=== PATIENT | male | born 1955 | race Caucasian/White ===

== ENCOUNTER 2017-02-18 23:36 | Emergency (ER) | payer BC, SELFPAY ==
[2017-02-18 23:54] VITALS: BP 153/89; PULSE 70; RESP 16; TEMP 36.6; O2SAT 98; BMI 26.6
--- NOTE | 2017-02-19 00:09 | XR_ITS ---
XR chest 2V HISTORY: ITS.REASON: cough ORDERING PHYSICIAN: Gabriel Burrell MD PATIENT AGE: 61 years COMPARISON: None available FINDINGS: The cardiomediastinal silhouette and pulmonary vascularity are within normal limits. The lungs are clear without infiltrates, suspicious nodules, or pleural effusions. No acute bony abnormalities. IMPRESSION: Negative chest, no acute finding
--- NOTE | 2017-02-19 00:14 | HMH.EDURI ---
ED Disposition Clinical Impression: Flu Disposition: Home, Self-Care Condition on Discharge: Good Instructions: DI for Fever (Symptom) -- Adult Additional Instructions: fluids and see pcp for follow up Referrals: Juan Jose De Luna [Primary Care Provider] - - Critical Care Critical Care Time: No Attestation: On , the high probability of a clinically significant, sudden or life threatening deterioration of the following system(s) required my full and direct attention, intervention and personal management. The time I documented below is in addition to time spent performing reported procedures but includes the following listed in this critical care notation. Medical Decision Making - Medical Records Medical records reviewed: Yes: I reviewed the patient's medical records. Vital Signs: 02/18/17 23:54 Temperature 97.8 F Temperature Source Oral Pulse Rate [Left Radial] 70 Respiratory Rate 16 Blood Pressure [Right Arm] 153/89 Blood Pressure Mean [Right Arm] 110 Blood Pressure Source [Right Arm] Automatic Cuff Blood Pressure Position [Right Arm] Sitting 02 Sat by Pulse Oximetry 98 Oxygen Delivery Method Room Air - Lab Data Lab results reviewed: Yes: I reviewed the patient's lab results. Lab Results 02/19/17 00:13: Influenza Type A Ag Negative, Influenza Type B Ag Negative 02/19/17 00:30: WBC 6.1, RBC 4.90, Hgb 14.3, Hct 43.1, MCV 87.9, MCH 29.3, MCHC 33.3, RDW 12.7, Plt Count 176, MPV 8.3, Neut % (Auto) 38.0, Lymph % (Auto) 49.7, Hood % (Auto) 5.3, Eos % (Auto) 2.9, Baso % (Auto) 0.7, Neut # (Auto) 2.3, Lymph # (Auto) 3.0, Hood # (Auto) 0.3, Eos # (Auto) 0.2, Baso # (Auto) 0.0 02/19/17 00:30: Sodium 142, Potassium 4.2, Chloride 107, Carbon Dioxide 29, Anion Gap 10.2, BUN 19 H, Creatinine 0.94, Estimated Creat Clear 88, Estimated GFR > 60, Est GFR ( Amer) > 60, Glucose 114 H, Calcium 8.6, Total Bilirubin 0.3, AST 70 H, ALT 90 H, Alkaline Phosphatase 64, Troponin I < 0.02, Total Protein 7.4, Albumin 3.9, Globulin 3.5 H, Albumin/Globulin Ratio 1.1 Result diagrams: 02/19/17 00:30 02/19/17 00:30 Orders (Tests/Meds): ED MEDICATIONS Discontinued Medications Generic Name Dose Route Start Last Admin Trade Name Javier PRN Reason Stop Dose Admin Sodium Chloride 1,000 mls @ 999 mls/hr 02/19/17 00:30 02/19/17 00:34 Sod Chloride 0.9% 1000ml Bag IV 02/19/17 01:30 999 mls/hr .Q1H1M HELGA Administration ORDERS Category Date Time Status Chest XR 2 view (NOT portable) [XR chest 2V] Stat Exams 02/19/17 00:09 Taken - Radiology Data #1 Image Reviewed: Yes I reviewed the patient's radiology image Preliminary Findings: Normal/NAD - [place] Inquiry Pt receiving controlled substance: No URI/Sore Throat HPI - General Chief Complaint: Fever Stated Complaint: fever,feels bad all over Time Seen by Provider: 02/19/17 00:14 Mode of Arrival: Ambulatory Source of Information: Patient, Relative, Medical Record Limitations: No Limitations Description of Symptoms (Recalled from ER Triage Doc. by RN): clamy sweaty stomach upset, dx of flu and on tamiflu - History of Present Illness HPI Narrative: this wm with exposure to flu and finished med tonight - pt with no chest pain MD Complaint: cough Onset (ago): day(s) Duration: intermittent Severity: moderate Description of mucous: clear Able to tolerate fluids by mouth: Yes Context: sick contacts - Related Data Home Medications Medication Instructions Recorded Confirmed Unobtainable [Unobtainable] 02/19/17 02/19/17 Allergies Allergy/AdvReac Type Severity Reaction Status Date / Time No Known Drug Allergies Allergy Unknown Verified 02/19/17 00:06 [NKDA] [facility] History I have reviewed the patient's past medical history: Yes Medical History: Denies:: Cancer, Diabetes Mellitus Type 1, Diabetes Mellitus Type 2, MRSA Amputation: No Fractures: No - *Social History Educational Level: Attended High School [employer]
--- NOTE | 2017-02-19 00:26 | ED_ITS ---
ED Disposition Clinical Impression: Flu Disposition: Home, Self-Care Condition on Discharge: Good Instructions: DI for Fever (Symptom) -- Adult Additional Instructions: fluids and see pcp for follow up Referrals: Juan Jose De Luna [Primary Care Provider] - - Critical Care Critical Care Time: No Attestation: On , the high probability of a clinically significant, sudden or life threatening deterioration of the following system(s) required my full and direct attention, intervention and personal management. The time I documented below is in addition to time spent performing reported procedures but includes the following listed in this critical care notation. Medical Decision Making - Medical Records Medical records reviewed: Yes: I reviewed the patient's medical records. Vital Signs: 02/18/17 23:54 Temperature 97.8 F Temperature Source Oral Pulse Rate [Left Radial] 70 Respiratory Rate 16 Blood Pressure [Right Arm] 153/89 Blood Pressure Mean [Right Arm] 110 Blood Pressure Source [Right Arm] Automatic Cuff Blood Pressure Position [Right Arm] Sitting 02 Sat by Pulse Oximetry 98 Oxygen Delivery Method Room Air - Lab Data Lab results reviewed: Yes: I reviewed the patient's lab results. Lab Results 02/19/17 00:13: Influenza Type A Ag Negative, Influenza Type B Ag Negative 02/19/17 00:30: WBC 6.1, RBC 4.90, Hgb 14.3, Hct 43.1, MCV 87.9, MCH 29.3, MCHC 33.3, RDW 12.7, Plt Count 176, MPV 8.3, Neut % (Auto) 38.0, Lymph % (Auto) 49.7 , Orange % (Auto) 5.3, Eos % (Auto) 2.9, Baso % (Auto) 0.7, Neut # (Auto) 2.3, Lymph # (Auto) 3.0, Orange # (Auto) 0.3, Eos # (Auto) 0.2, Baso # (Auto) 0.0 02/19/17 00:30: Sodium 142, Potassium 4.2, Chloride 107, Carbon Dioxide 29, Anion Gap 10.2, BUN 19 H, Creatinine 0.94, Estimated Creat Clear 88, Estimated GFR > 60, Est GFR ( Amer) > 60, Glucose 114 H, Calcium 8.6, Total Bilirubin 0.3, AST 70 H, ALT 90 H, Alkaline Phosphatase 64, Troponin I < 0.02, Total Protein 7.4, Albumin 3.9, Globulin 3.5 H, Albumin/Globulin Ratio 1.1 Result diagrams: 02/19/17 00:30 02/19/17 00:30 Orders (Tests/Meds): ED MEDICATIONS Discontinued Medications Generic Name Dose Route Start Last Admin Trade Name Freq PRN Reason Stop Dose Admin Sodium Chloride 1,000 mls @ 999 mls/hr 02/19/17 00:30 02/19/17 00:34 Sod Chloride 0.9% 1000ml Bag IV 02/19/17 01:30 999 mls/hr .Q1H1M HELGA Administration ORDERS Category Date Time Status Chest XR 2 view (NOT portable) [XR chest 2V] Stat Exams 02/19/17 00:09 Taken - Radiology Data #1 Image Reviewed: Yes I reviewed the patient's radiology image Preliminary Findings: Normal/NAD - [place] Inquiry Pt receiving controlled substance: No URI/Sore Throat HPI - General Chief Complaint: Fever Stated Complaint: fever,feels bad all over Time Seen by Provider: 02/19/17 00:14 Mode of Arrival: Ambulatory Source of Information: Patient, Relative, Medical Record Limitations: No Limitations Description of Symptoms (Recalled from ER Triage Doc. by RN): clamy sweaty stomach upset, dx of flu and on tamiflu - History of Present Illness HPI Narrative: this wm with exposure to flu and finished med tonight - pt with no chest pain MD Complaint: cough Onset (ago): day(s) Duration: intermittent Severity: moderate Description of mucous: li
[2017-02-19 01:48] LABS: Basophils % 0.7 % (0.1-2.0); Eosinophils % 2.9 % (0.1-12.0); Hematocrit 43.1 % (42.0-52.0); Hemoglobin 14.3 g/dL (14.1-18.0); Lymphocytes % 49.7 K/mm3 (10-50); Mean Corpuscular HGB Conc 33.3 g/dL (31.8-35.4); Mean Corpuscular Hemoglobin 29.3 pg (27.0-31.2); Mean Corpuscular Volume 87.9 fl (80-94); Mean Platelet Volume 8.3 fl (7.4-10.4); Monocytes % 5.3 % (1.7-9.3); Platelet Count 176 K/mm3 (142-424); Red Cell Distribution Width 12.7 % (11.5-17.5); White Blood Count 6.1 K/mm3 (4.8-10.8)
[2017-02-19 01:49] LABS: Eosinophils # 0.2 K/mm3 (0.0-0.4); Monocytes # 0.3 K/mm3 (0.1-1.0); Neutrophils # 2.3 K/mm3 (1.8-7.8)
[2017-02-19 01:52] LABS: Alanine Aminotransferase 90 U/L (12-78); Albumin Level 3.9 gm/dL (3.4-5.0); Albumin/Globulin Ratio 1.1 (1.1-1.8); Alkaline Phosphatase 64 U/L (46-116); Anion Gap 10.2 mEq/L (5-15); Aspartate Amino Transferase 70 U/L (15-37); Bilirubin,Total 0.3 mg/dL (0.2-1.0); Blood Urea Nitrogen 19 mg/dL (7-18); Calcium 8.6 mg/dL (8.5-10.1); Carbon Dioxide 29 mmol/L (21.0-32.0); Chloride 107 mmol/L (98-107); Creatinine Clearance Estimated 88 mL/min (0-300); Creatinine,Serum 0.94 mg/dL (0.70-1.30); Estimated Glomerular Filt Rate > 60 ml/min (>60); GFR (African American) > 60 ML/MIN (>60); Globulin 3.5 gm/dl (1.3-3.2); Glucose 114 mg/dL (74-106); Potassium 4.2 mmoL/L (3.5-5.1); Sodium 142 mmol/L (136-145); Total Protein,Serum 7.4 gm/dL (6.4-8.2); Troponin I < 0.02 ng/ml (0.00-0.06)
[2017-02-19 02:24] VITALS: BP 142/82; PULSE 64; RESP 20; TEMP 36.4; O2SAT 97
== END 2017-02-19 02:26 | disposition home or self-care (01) ==
PROVIDERS: Emergency Provider Emergency Medicine; Family Provider Internal Medicine; PCP Internal Medicine
DX: J11.1 Influenza due to unidentified influenza virus with other respiratory manifestations (principal)
CPT/HCPCS: 71046; 80053; 84484; 85025; 87275; 87276; 96360; 96365; 99284

== ENCOUNTER → 2017-08-02 08:26 | Outpatient (CLI) | payer BC, SELFPAY ==
--- NOTE | 2017-08-02 08:30 | CT_ITS ---
CT abdomen pelvis wo con Ordering Physician: Juan Jose De Luna Patient Age: 62 years: Male HISTORY: ITS.REASON: RLQ PAIN . Right lower quadrant intermittent several months* TECHNIQUE: Helical CT scanning through abdomen following oral contrast only. No IV contrast utilized. COMPARISON :None FINDINGS Lung bases. Clear no active disease heart normal size. Abdomen/pelvis. Lack of IV contrast is slightly decreased sensitivity. Gallbladder. Upper normal wall thickness on this noncontrast study. No gallstones. Noncontrast images pancreas, spleen, adrenals unremarkable. Kidneys with no urinary tract calculi nor obstruction. Unremarkable. Liver. Tiny vague barely evident 5 mm low-density area anterior liver near junction right & left lobe liver. Axial image 20 sagittal 26.. Will benefit from follow-up in postcontrast CT 3 days 4 months.. Consider ultrasound No retroperitoneal nor mesenteric adenopathy of significance GI tract.. Low-density focal wall thickening along posterior medial aspect of of cecum, (axial image 79, 80, sagittal slice 31).. Possibly edematous area wall thickening given this low density character. The wall measures nearly 1 cm thickness x 2.2 cm length. Uncertain nature. This extends upward to just beneath ileocecal valve. Question some upper normal slight wall thickening at the terminal ileum.. Suggestion slight hazy appearance in the fat just posterior to cecum on axial image 8, sagittal slice 27 as well. The appendix arises just below, inferior to this area of wall thickening. Appendix normal. No appendicitis Lax-appearing inguinal ring bilaterally with increased fat along inguinal canal. Could reflect early inguinal hernias versus merely generous fat along the canal. No bowel loops associated. . Small fat-containing umbilical hernia Pelvis generous size prostate 5.3 cm transverse. Osseous. No osseous lesions. IMPRESSION-------- 1.. Focal wall thickening along posterior medial aspect of cecum, (between ileocecal valve & appendix).. Subtle slight hazy appearance in adjacent fat overlying this area.. Question borderline/minimal wall thickening, terminal ileum. Although could be related focal colitis, & inflammatory process,... I would recommend colonoscopy to better exclude central developing lesion/neoplasm.. 2. The appendix itself appears normal otherwise. 3. No significant adenopathy 4.. Nonspecific Tiny vague barely evident 5 mm low-density area at anterior Liver near junction right & left lobe liver.. Will benefit from follow-up
== END ==
PROVIDERS: Family Provider Internal Medicine; PCP Internal Medicine; Visit Provider Internal Medicine
DX: R10.31 Right lower quadrant pain (principal)
CPT/HCPCS: 74176

== ENCOUNTER → 2017-08-13 11:54 | Outpatient (CLI) | payer BC, SELFPAY ==
[2017-08-13 13:37] LABS: Anion Gap 10.1 mEq/L (5-15); Blood Urea Nitrogen 16 mg/dL (7-18); Calcium 9.3 mg/dL (8.5-10.1); Carbon Dioxide 28 mmol/L (21.0-32.0); Chloride 107 mmol/L (98-107); Creatinine,Serum 0.91 mg/dL (0.70-1.30); Estimated Glomerular Filt Rate 84 ml/min (>60); GFR (African American) 102 ML/MIN (>60); Glucose 110 mg/dL (74-106); Potassium 5.1 mmoL/L (3.5-5.1); Sodium 140 mmol/L (136-145)
== END ==
PROVIDERS: Visit Provider Nurse Practitioner Acute Care
DX: K76.89 Other specified diseases of liver (principal)
CPT/HCPCS: 36415; 80048

== ENCOUNTER → 2017-08-21 08:09 | Outpatient (CLI) | payer BC, SELFPAY | PROVIDERS: Family Provider Internal Medicine; PCP Internal Medicine; Visit Provider Nurse Practitioner Acute Care | DX: R16.0 Hepatomegaly, not elsewhere classified (principal) ==

== ENCOUNTER → 2017-08-27 08:19 | Outpatient (CLI) | payer BC, SELFPAY ==
--- NOTE | 2017-08-27 08:23 | MR_ITS ---
MR abdomen wo/w con Ordering Physician: Marcia Chakraborty Patient Age: 62 years: Male HISTORY: ITS.REASON: LIVER MASS TECHNIQUE: MRI of the abdomen (pelvis not included). COMPARISON : Multiplanar multisequence imaging pre and postcontrast. Postcontrast images following ProHance 16 mL. Sequential postcontrast images abdomen/liver were obtained with arterial, venous phase and delayed images postcontrast in reviewed with the with precontrast imaging. FINDINGS COMPARISON is made to recent CT abdomen pelvis. 08/02/2018 The liver shows no significant focal lesion. No enhancing abnormality evident postcontrast . The liver appears normal with only a tiny barely evident 4 mm x 5 mm cyst superior segment 4a liver.. This is seen on CT but today's MR further support small cyst.. No enhancement at tiny fluid signal focus. No associated findings. . Spleen appears normal. Kidneys. No significant appearing findings. It appears that inhomogeneous artifact on this Siemens short bore scanner account for the decreased signal at the lower pole left kidney on some of the sequences. But not a significant finding. Artifact.. Adrenals unremarkable. There is a small less than 1 cm cyst at along the anterior margin of the mid left kidney on one of the images, axial slice 20. This is faintly seen on prior CT as well. Gallbladder remains. No biliary ductal dilatation. Images the pancreas show no abnormality No retroperitoneal adenopathy. . These images do not include the cecum but the coronal images do extend down to just above the cecum. These limited images of right colon are unremarkable as well. IMPRESSION: ======= . No significant finding No significant masses or lesions evident at the liver. Small 4 x 5 mm cyst at the anterior upper liver. Segment 4A A tiny less than 1 cm cysts anterior aspect mid left kidney.
--- NOTE | 2017-08-27 09:52 | HMH.ITSHM ---
LISINOPRIL ATORVASTATIN
== END ==
PROVIDERS: Family Provider Internal Medicine; PCP Internal Medicine; Visit Provider Nurse Practitioner Acute Care
DX: K76.89 Other specified diseases of liver (principal)
CPT/HCPCS: 74183; A9576

== ENCOUNTER → 2017-10-30 11:17 | Outpatient (CLI) | payer BC, SELFPAY ==
[2017-10-30 11:37] LABS: Basophils % 0.4 % (0.1-2.0); Eosinophils # 0.2 K/mm3 (0.0-0.4); Eosinophils % 3.4 % (0.1-12.0); Hematocrit 45.8 % (42.0-52.0); Hemoglobin 15.2 g/dL (14.1-18.0); Lymphocytes # 1.5 K/mm3 (0.7-4.5); Lymphocytes % 25.8 K/mm3 (10-50); Mean Corpuscular HGB Conc 33.2 g/dL (31.8-35.4); Mean Corpuscular Hemoglobin 29.4 pg (27.0-31.2); Mean Corpuscular Volume 88.4 fl (80-94); Mean Platelet Volume 7.1 fl (7.4-10.4); Monocytes # 0.3 K/mm3 (0.1-1.0); Monocytes % 4.6 % (1.7-9.3); Neutrophils # 3.8 K/mm3 (1.8-7.8); Neutrophils % 65.7 % (37.0-80.0); Platelet Count 187 K/mm3 (142-424); Red Blood Count 5.18 M/mm3 (4.60-6.20); Red Cell Distribution Width 13.3 % (11.5-17.5); White Blood Count 5.8 K/mm3 (4.8-10.8)
[2017-10-30 16:07] LABS: Blood Urea Nitrogen 15 mg/dL (7-18); Calcium 9.1 mg/dL (8.5-10.1); Carbon Dioxide 22 mmol/L (21.0-32.0); Chloride 109 mmol/L (98-107); Creatinine,Serum 0.75 mg/dL (0.70-1.30); Estimated Glomerular Filt Rate 105 ml/min (>60); GFR (African American) 127 ML/MIN (>60); Glucose 92 mg/dL (74-106); Sodium 145 mmol/L (136-145)
== END ==
PROVIDERS: Family Provider Internal Medicine; PCP Internal Medicine; Visit Provider Surgery
DX: K46.9 Unspecified abdominal hernia without obstruction or gangrene (principal)
CPT/HCPCS: 36415; 80048; 85025; 93005

== ENCOUNTER → 2020-03-05 14:28 | Outpatient (CLI) | payer MEDICARE, BC, SELFPAY ==
[2020-03-06 10:52] LABS: Covid-19 Nasal PCR Sendout P&C NEGATIVE
== END ==
PROVIDERS: PCP Internal Medicine; Visit Provider Internal Medicine
DX: Z20.822 Contact with and (suspected) exposure to COVID-19 (principal)
CPT/HCPCS: U0004

== ENCOUNTER → 2021-01-20 20:09 | Outpatient (CLI) | payer MEDICARE, SELFPAY | PROVIDERS: PCP Internal Medicine; Visit Provider Nurse Practitioner Family | DX: Z20.822 Contact with and (suspected) exposure to COVID-19 (principal) | CPT/HCPCS: C9803; U0003; U0005 ==

== ENCOUNTER → 2021-11-25 11:17 | Outpatient (CLI) | payer MEDICARE, SELFPAY ==
--- NOTE | 2021-11-25 11:24 | XR_ITS ---
FINAL REPORT TECHNIQUE: Chest PA & Lateral CLINICAL HISTORY: RT FLANK PAIN COMPARISON: February 2017 FINDINGS: 2 views of the chest were performed. The heart size is normal. The mediastinum is within normal limits. There is no acute cardiopulmonary process. There are no pleural effusions. There is no pneumothorax. There is moderate degenerative change of the thoracic spine. IMPRESSION: No acute cardiopulmonary process. Reviewed, Interpreted and Dictated by Lonnie Pederson III, MD Transcribed by Miki Ramos Authenticated and . [facility]
--- NOTE | 2021-11-25 11:24 | XR_ITS ---
FINAL REPORT CLINICAL HISTORY: FLANK PAIN FINDINGS: A single view of the abdomen was obtained. There is a nonobstructive bowel gas pattern. There are no abnormally dilated loops of small bowel. There is a moderate amount of retained stool. IMPRESSION: 1. Nonobstructive bowel gas pattern. 2. Moderate amount of retained stool. Reviewed, Interpreted and Dictated by Lonnie Pederson III, MD Transcribed by Miki Ramos Authenticated and . [facility]
== END ==
PROVIDERS: PCP Internal Medicine; Visit Provider Family Medicine
DX: R07.89 Other chest pain (principal); R10.9 Unspecified abdominal pain
CPT/HCPCS: 71046; 74018

== ENCOUNTER → 2021-12-09 13:31 | Outpatient (CLI) | payer MEDICARE, SELFPAY ==
[2021-12-09 15:20] LABS: Basophils # 0.1 K/mm3 (0-0.2); Eosinophils # 0.3 K/mm3 (0.0-0.4); Hematocrit 49.9 % (42.0-52.0); Hemoglobin 16.4 g/dL (14.1-18.0); Lymphocytes # 2.4 K/mm3 (0.7-4.5); Lymphocytes % 35.3 % (10-50); Mean Corpuscular HGB Conc 32.9 g/dL (31.8-35.4); Mean Corpuscular Hemoglobin 30.1 pg (27.0-31.2); Mean Corpuscular Volume 91.6 fl (80-94); Mean Platelet Volume 8.6 fl (7.4-10.4); Monocytes # 0.3 K/mm3 (0.1-1.0); Monocytes % 4.6 % (1.7-9.3); Neutrophils # 3.7 K/mm3 (1.8-7.8); Neutrophils % 55.1 % (37.0-80.0); Platelet Count 250 K/mm3 (142-424); Red Blood Count 5.44 M/mm3 (4.60-6.20); Red Cell Distribution Width 13.4 % (11.5-17.5); White Blood Count 6.8 K/mm3 (4.8-10.8)
[2021-12-09 15:50] LABS: Alanine Aminotransferase 21 U/L (12-78); Albumin Level 4.5 g/dl (3.5-5.0); Albumin/Globulin Ratio 1.8 (1.1-1.8); Alkaline Phosphatase 98 U/L (38-126); Anion Gap 18.2 mEq/L (5-15); Aspartate Amino Transferase 34 U/L (17-59); Bilirubin,Total 0.8 mg/dl (0.2-1.3); Blood Urea Nitrogen 13 mg/dl (9-20); Calcium 9.6 mg/dl (8.4-10.2); Carbon Dioxide 28 mmol/L (22.0-30.0); Chloride 102 mmol/L (98-107); Cholesterol 143 mg/dl (140-200); Estimated Glomerular Filt Rate 96 ml/min (>60); GFR (African American) 117 ML/MIN (>60); Globulin 2.5 g/dL (1.3-3.2); Glucose 90 mg/dl (74-100); HDL Cholesterol 47 mg/dl (40-60); Potassium 5.2 mmoL/L (3.5-5.1); Sodium 143 mmol/L (136-145); Triglycerides 65 mg/dl (30-150); VLDL Cholesterol 13 mg/dL (0-40)
[2021-12-09 16:01] LABS: Direct LDL Cholesterol 76.02 mg/dL (100-129)
[2021-12-09 16:21] LABS: Prostate Specific Ag Screen 1.2 ng/ml (0.0-4.0)
== END ==
PROVIDERS: PCP Internal Medicine; Visit Provider Internal Medicine
DX: I10 Essential (primary) hypertension (principal); E78.5 Hyperlipidemia, unspecified; N40.1 Benign prostatic hyperplasia with lower urinary tract symptoms; Z12.5 Encounter for screening for malignant neoplasm of prostate
CPT/HCPCS: 80053; 80061; 85025; G0103

== ENCOUNTER 2022-02-23 19:50 | Emergency (ER) | payer MEDICARE, SELFPAY ==
[2022-02-23 20:17] VITALS: BP 161/88; PULSE 72; RESP 17; TEMP 36.8; O2SAT 98; BMI 26.1
--- NOTE | 2022-02-23 20:44 | HMH.EDDENT ---
Discharge Plan Disposition Patient Disposition: Home, Self-Care Prescriptions Prescriptions: New cephalexin [cephalexin] 500 mg capsule 500 mg PO TID Qty: 30 0RF No Action atorvastatin 20 MG tablet 20 mg PO DAILY lisinopril 20 tablet 20 mg PO DAILY Referrals Follow up/Referrals: Juan Jose De Luna MD [Primary Care Provider] - See instructions Clinical Impressions Clinical Impression: Gingival and periodontal disease Instructions Patient Instructions: DI for Gingivitis Discharge ED Provider: Gabriel Burrell Dental HPI General Chief complaint: Dental/Oral Stated complaint: dental pain Time Seen by Provider: 02/23/22 20:44 Mode of Arrival: Family Vehicle Source of Information: Patient and Medical Record Limitations: No Limitations Description of Symptoms (Recalled from ER Triage Doc. by RN): 66 yo male presents with pain associated with what he assumes is a bad tooth . States he was 'working on his mower and noticed the pain in the front bottom of his mouth -below his teeth-was hurting. Attempted to use orajel without any success. Denies allergies to meds. No previous dental surgeries. Has seen Dr Oliver in the past. History of Present Illness HPI Narrative: swollen mid lower lip - inner aspect- no diff swallowing and no tongue swelling and has thrombing to gum line - has been on lisinopril for some time Onset (ago): hour(s) Duration: intermittent Severity: mild Associated symptoms: gum swelling Treatment prior to arrival: topical analgesic Related Data Home Medications Medication Instructions Recorded Confirmed atorvastatin 20 mg tablet 20 mg PO DAILY Cholesterol 10/01/17 11/07/17 lisinopril 20 mg tablet 20 mg PO DAILY bp 10/01/17 11/07/17 Previous Rx's Medication Instructions Recorded cephalexin 500 mg capsule 500 mg PO TID #30 caps 02/23/22 Allergies Allergy/AdvReac Type Severity Reaction Status Date / Time No Known Drug Allergies Allergy Unknown Verified 11/30/17 09:37 [NKDA] [facility] Disclaimer: The information contained in this section may have been updated after the patient was seen, as this information can be updated by other users. Social History Smoking Status: Never smoker second hand exposure: No alcohol intake: never current occupational status: employed Travel in the last 8 weeks: None household members: family housing: house current occupational exposures/hazards: No caffeine: No ROS Obtained: Yes All systems reviewed & no additional complaints except as documented Physical Exam General General appearance: alert Head Head exam: normocephalic Eye Eye exam: Present PERRL and EOMI ENT ENT exam: Present mucous membranes moist and other (tongue ok - sl tender to ant gum line no def abscess /mild induration to gum line ) Neck Neck exam: Present trachea midline Respiratory Respiratory exam: Absent respiratory distress Cardiovascular Cardiovascular exam: Present regular rate Abdominal Exam Abdominal exam: Present soft Extremities Exam Extremities exam: Present full ROM Neurological Exam Neurological exam: Present alert, oriented X3 and CN II-XII intact; Absent motor sensory deficit Psychiatric Psychiatric exam: Present normal affect Skin Skin exam: Absent rash Medical Decision Making Medical Records Medical records reviewed: Yes I reviewed the patient's medical records. [place] Inquiry Pt receiving controlled substance: No Vital Signs: 02/23/22 20:17 Temperature 98.2 F Temperature Source Oral Pulse Rate [Right Brachial] 72 Respiratory Rate 17 Blood Pressure [Right Arm] 161/88 H Blood Pressure Mean [Right Arm] 112 Blood Pressure Source [Right Arm] Automatic Cuff Blood Pressure Position [Right Arm] Sitting 02 Sat by Pulse Oximetry 98 Oxygen Delivery Method Room Air Lab Data Lab results reviewed: Yes I reviewed the patient's lab results. Medical Decision Narrative: pt with prog gingival dis but will as
[2022-02-23 21:22] VITALS: BP 157/71; PULSE 70; RESP 16; TEMP 36.8; O2SAT 98
== END 2022-02-23 21:23 | disposition home or self-care (01) ==
PROVIDERS: Emergency Provider Emergency Medicine; PCP Internal Medicine
DX: K05.01 Acute gingivitis, non-plaque induced (principal); K05.20 Aggressive periodontitis, unspecified
CPT/HCPCS: 99283; 99284

== ENCOUNTER → 2022-06-12 10:11 | Outpatient (CLI) | payer MEDICARE, SELFPAY ==
[2022-06-12 11:13] LABS: Chloride 106 mmol/L (98-107)
[2022-06-12 11:14] LABS: Potassium 4.4 mmoL/L (3.5-5.1); Sodium 140 mmol/L (136-145)
[2022-06-12 11:16] LABS: Alanine Aminotransferase 25 U/L (12-78); Anion Gap 9.4 mEq/L (5-15); Aspartate Amino Transferase 30 U/L (17-59); Blood Urea Nitrogen 14 mg/dl (9-20); Carbon Dioxide 29 mmol/L (22.0-30.0); Estimated Glomerular Filt Rate 84 ml/min (>60); GFR (African American) 102 ML/MIN (>60)
[2022-06-12 11:17] LABS: Albumin Level 4.2 g/dl (3.5-5.0); Albumin/Globulin Ratio 1.8 (1.1-1.8); Alkaline Phosphatase 67 U/L (38-126); Bilirubin,Total 0.7 mg/dl (0.2-1.3); Chol/HDL Ratio 3.2 (1-3.5); Cholesterol 129 mg/dl (140-200); Globulin 2.4 g/dL (1.3-3.2); Glucose 102 mg/dl (74-100); HDL Cholesterol 40 mg/dl (40-60); Total Protein,Serum 6.6 g/dl (6.3-8.2); Triglycerides 106 mg/dl (30-150); VLDL Cholesterol 21 mg/dL (0-40)
[2022-06-12 11:28] LABS: Direct LDL Cholesterol 73.07 mg/dL (100-129)
== END ==
PROVIDERS: PCP Internal Medicine; Visit Provider Internal Medicine
DX: I10 Essential (primary) hypertension (principal); E78.5 Hyperlipidemia, unspecified
CPT/HCPCS: 36415; 80053; 80061

== ENCOUNTER → 2022-12-13 09:22 | Outpatient (CLI) | payer MEDICARE, SELFPAY ==
[2022-12-13 10:04] LABS: Basophils # 0.1 K/mm3 (0-0.2); Basophils % 0.8 % (0.1-2.0); Eosinophils # 0.3 K/mm3 (0.0-0.4); Eosinophils % 4.9 % (0.1-12.0); Hematocrit 46.4 % (42.0-52.0); Hemoglobin 15.8 g/dL (14.1-18.0); Lymphocytes # 2.5 K/mm3 (0.7-4.5); Lymphocytes % 39.6 % (10-50); Mean Corpuscular HGB Conc 34.1 g/dL (31.8-35.4); Mean Corpuscular Hemoglobin 31.6 pg (27.0-31.2); Mean Corpuscular Volume 92.7 fl (80-94); Monocytes # 0.3 K/mm3 (0.1-1.0); Monocytes % 4.8 % (1.7-9.3); Neutrophils # 3.1 K/mm3 (1.8-7.8); Neutrophils % 49.9 % (37.0-80.0); Platelet Count 185 K/mm3 (142-424); Red Cell Distribution Width 13.5 % (11.5-17.5); White Blood Count 6.2 K/mm3 (4.8-10.8)
[2022-12-13 11:06] LABS: Alanine Aminotransferase 25 U/L (12-78); Albumin Level 4.5 g/dl (3.5-5.0); Albumin/Globulin Ratio 1.9 (1.1-1.8); Alkaline Phosphatase 73 U/L (38-126); Anion Gap 13.8 mEq/L (5-15); Aspartate Amino Transferase 37 U/L (17-59); Bilirubin,Total 0.7 mg/dl (0.2-1.3); Blood Urea Nitrogen 21 mg/dl (9-20); Calcium 9.5 mg/dl (8.4-10.2); Carbon Dioxide 26 mmol/L (22.0-30.0); Chloride 105 mmol/L (98-107); Chol/HDL Ratio 2.9 (1-3.5); Cholesterol 141 mg/dl (140-200); Estimated Glomerular Filt Rate 84 ml/min (>60); GFR (African American) 102 ML/MIN (>60); Globulin 2.4 g/dL (1.3-3.2); Glucose 94 mg/dl (74-100); HDL Cholesterol 48 mg/dl (40-60); Potassium 4.8 mmoL/L (3.5-5.1); Sodium 140 mmol/L (136-145); Total Protein,Serum 6.9 g/dl (6.3-8.2); Triglycerides 45 mg/dl (30-150); VLDL Cholesterol 9 mg/dL (0-40)
[2022-12-13 11:35] LABS: Prostate Specific Ag Screen 1.1 ng/ml (0.0-4.0)
== END ==
PROVIDERS: PCP Internal Medicine; Visit Provider Internal Medicine
DX: I10 Essential (primary) hypertension (principal); Z12.5 Encounter for screening for malignant neoplasm of prostate; E78.5 Hyperlipidemia, unspecified; N40.1 Benign prostatic hyperplasia with lower urinary tract symptoms
CPT/HCPCS: 36415; 80053; 80061; 85025; G0103

== ENCOUNTER 2023-06-13 13:14 | Outpatient (CLI) | payer MEDICARE, SELFPAY ==
[2023-06-13 14:21] LABS: Alanine Aminotransferase 25 U/L (12-78); Albumin Level 4.3 g/dl (3.5-5.0); Albumin/Globulin Ratio 1.8 (1.1-1.8); Alkaline Phosphatase 72 U/L (38-126); Anion Gap 12.4 mEq/L (5-15); Aspartate Amino Transferase 34 U/L (17-59); Bilirubin,Total 0.9 mg/dl (0.2-1.3); Blood Urea Nitrogen 20 mg/dl (9-20); Calcium 9.4 mg/dl (8.4-10.2); Carbon Dioxide 27 mmol/L (22.0-30.0); Chloride 107 mmol/L (98-107); Chol/HDL Ratio 2.6 (1-3.5); Cholesterol 151 mg/dl (140-200); Estimated Glomerular Filt Rate 84 ml/min (>60); GFR (African American) 102 ML/MIN (>60); Globulin 2.4 g/dL (1.3-3.2); Glucose 80 mg/dl (74-100); HDL Cholesterol 57 mg/dl (40-60); Potassium 4.4 mmoL/L (3.5-5.1); Sodium 142 mmol/L (136-145); Total Protein,Serum 6.7 g/dl (6.3-8.2); Triglycerides 75 mg/dl (30-150); VLDL Cholesterol 15 mg/dL (0-40)
[2023-06-13 14:31] LABS: Direct LDL Cholesterol 82.38 mg/dL (100-129)
== END 2023-06-13 23:59 | disposition home or self-care (01) ==
LOC: LAB.DROPOF 13:15
PROVIDERS: PCP Internal Medicine; Visit Provider Internal Medicine
DX: I10 Essential (primary) hypertension (principal); E78.5 Hyperlipidemia, unspecified; N40.1 Benign prostatic hyperplasia with lower urinary tract symptoms
CPT/HCPCS: 80053; 80061

== ENCOUNTER 2023-07-11 09:31 | Outpatient (POV) | payer MEDICARE, SELFPAY | END 2023-07-11 23:59 | disposition home or self-care (01) | LOC: SC 09:31 | PROVIDERS: Visit Provider Specialist/Technologist | DX: Z00.00 Encounter for general adult medical examination without abnormal findings (principal) ==

== ENCOUNTER 2023-11-12 06:33 | Day surgery (SDC) | payer MEDICARE, SELFPAY ==
[2023-11-07 09:15] VITALS: BMI 25.1
[2023-11-12 07:05] VITALS: BP 142/88; PULSE 68; RESP 18; TEMP 36.2; O2SAT 100
[2023-11-12] MEDS: LACTATED RINGERS 1000ML 1,000 ML 25 ML IV (07:13)
--- NOTE | 2023-11-12 07:32 | EXP.ANES.CKL ---
[facility] Disclaimer: The information contained in this section may have been updated after the patient was seen, as this information can be updated by other users. Medical History Hyperlipidemia Hypertension Eustachian tube obstruction Bilateral serous otitis media Dizziness Tinnitus Hearing loss Surgical History History of colonoscopy with polypectomy History of hernia repair Family History Other Family history of CABG Family history of [place] (myocardial infarction) Social History Smoking Status: Never smoker second hand exposure: No alcohol intake: former substance use type: denies use current occupational status: retired Travel in the last 8 weeks: None household members: family housing: house current occupational exposures/hazards: No caffeine: No [facility] Anesthesia Checklist Patient Identification Patient Identification: Arm Band and Verbal (Name & ) Structural Data Admitted From: Home Planned Operative Procedure/s: Colonoscopy Consent for Planned Operative Procedure(s) Verified: Yes Verified Documents: Surgical Consent and History and Physical NPO Status Verified Time NPO: 00:00 Additional verifications Anesthesia Reactions: No Hx Blood Transfusions: No Blood Transfusion Reaction: No Airway Assessment Mallampati Score:: Class II C-Spine Mobility Assessed: Yes TMJ Mobility Assessed: Yes Dentition: Poor Dentition Neurological Assessment Level of Consciousness: Awake Hx Seizures: No Numbness or tingling in extremities: No Anesthesia Plan Anesthesia Risk discussed: Yes Anesthesia Plan: Verified ASA Class: II Anesthesia Type: MAC
--- NOTE | 2023-11-12 07:51 | P.HP_ITS ---
History of Present Illness *Admission Date: 11/12/23 *Reason for visit:: Screening *History of present illness: Mr. Cuevas is a 68-year-old gentleman who is here for screening due to a personal history of colon polyps. The examination is deemed medically necessary for screening. The patient has been seen, interviewed and examined prior to the procedure by both myself and the anesthesia provider. [facility] Disclaimer: The information contained in this section may have been updated after the patient was seen, as this information can be updated by other users. Medical History Hyperlipidemia Hypertension Eustachian tube obstruction Bilateral serous otitis media Dizziness Tinnitus Hearing loss Surgical History History of colonoscopy with polypectomy History of hernia repair Family History Other Family history of CABG Family history of [place] (myocardial infarction) Social History (Updated 11/12/23 @ 07:32 by Yajaira Charles CRNA) Smoking Status: Never smoker second hand exposure: No alcohol intake: former substance use type: denies use current occupational status: retired Travel in the last 8 weeks: None household members: family housing: house current occupational exposures/hazards: No caffeine: No Review of Systems Review of Systems Review of systems (narrative): Negative *Cardiovascular Comments: Negative *Gastrointestinal Comments: Negative *Genitourinary Comments: Negative *Musculoskeletal Comments: Negative *Neurologic Comments: Negative Meds Home Medications and Allergies Home Medications ?Medication ?Instructions ?Recorded ?Confirmed ?Type atorvastatin 20 mg tablet 20 mg PO DAILY Cholesterol 10/01/17 11/12/23 History lisinopril 20 mg tablet 20 mg PO DAILY bp #90 tabs 09/25/23 11/12/23 Rx sodium,potassium,mag sulfates 17.5 See Rx Instructions PO .COMPLEX 10/29/23 11/07/23 Rx gram-3.13 gram-1.6 gram oral soln #354 mL (Suprep Bowel Prep Kit) New Prescriptions to Start Prescriptions: Allergies Allergy/AdvReac Type Severity Reaction Status Date / Time No Known Drug Allergies Allergy Unknown Other Verified 11/12/23 07:04 [NKDA] Exam Data for Last 24 hours Vital signs and Labs for Last 24 Hours: Temp Pulse Resp BP Pulse Ox O2 Del Method 97.1 F L 68 18 142/88 H 100 Room Air 11/12/23 07:05 11/12/23 07:05 11/12/23 07:05 11/12/23 07:05 11/12/23 07:05 11/12/23 07:05 *Routine HEENT Exam Head: Present normocephalic Eye: Present EOMI and PERRL ENT: Present mucous membranes moist *Routine Neck Exam Neck: Present supple *Routine Respiratory Exam Respiratory: Present CTA bilaterally *Routine Cardiovascular Exam Cardiovascular: Present RRR *Routine Abdominal Exam Abdominal: Present soft and normoactive bowel sounds; Absent tenderness *Routine Rectal Exam Rectal:: deferred *Routine Genitalia Exam Genitalia:: deferred *Routine Extremities Exam Extremities: Absent cyanosis, clubbing or edema *Routine Skin Exam Skin: Present warm; Absent rash *Routine Neurological Exam Neurological: Present alert and oriented X3 Assessment and Plan *Assessment and plan (1) Screening for colon cancer: Status: Acute Category: Medical Code(s): Z12.11 - Encounter for screening for malignant neoplasm of colon (2) Personal history of colonic polyps: Status: Acute Category: Medical Code(s): Z86.010 - Personal history of colonic polyps Plan A/P: 1. Screening?personal history of colon polyps is the preprocedural diagnosis. The patient will be anesthetized/sedated using MAC sedation. The patient has been seen and examined. Cardiac and lung assessment prior to the examination is stable. Proceed with planned colonoscopy
[2023-11-12 07:55] VITALS: O2SAT 100
--- NOTE | 2023-11-12 07:59 | P.PCN_ITS ---
[facility] Procedure Note Date: 11/12/23 Time: 08:11 Procedure Note:: Colonoscopy Procedure Report: Colonoscopy with cold snare polypectomy Endoscopist: Jonathan Lopez II, MD Referring physician: Juan Jose De Luna MD Date of Procedure: November 12, 2023 Equipment: Olympus 190 variable stiffness pediatric colonoscope Sedation: MAC sedation Indication: Mr. Cuevas is a 68-year-old gentleman who is here for follow-up screening/surveillance colonoscopy. The patient did have a colonoscopy in A ust 2017 and had 2 diminutive cecal polyps(Mucosal prolapse polyp). The patient reports no abdominal pain, weight loss, change in his bowel habits or rectal bleeding. He reports no family history of colon cancer. Procedure: Prior to the procedure, a history and physical exam was performed, and patient's medications and allergies were reviewed. The risks, benefits and alternatives of the sedation and procedure were discussed with the patient. All questions were answered and informed consent was obtained. The patient was brought to the procedure room. Patient identification and proposed procedure were verified by the physician and the nurse. The patient was placed in a left lateral decubitus position and the scope was passed under direct vision. Throughout the procedure, the patient's blood pressure, pulse, and oxygen saturations were monitored continuously. The colonoscopy was accomplished without difficulty. The patient tolerated the procedure well. Findings: On digital rectal examination there was normal rectal tone. There were no external hemorrhoids. The prostate was 2+, smooth, soft, symmetric without nodules. The colonoscope was introduced through the anal canal to the rectum and advanced to the cecum. The ileocecal valve and appendiceal orifice were identified. The scope was advanced a short distance into the ileum which appeared grossly normal. The scope was then withdrawn into the colon. There were 2 diminutive polyps (3 and 4 mm) in the ascending colon removed via cold snare polypectomy. The remaining cecum, ascending and transverse colon and muc maikol were grossly normal. There were scattered diverticuli throughout the descending and sigmoid colon (LEFT colon). The rectum itself was normal. Upon retroflexion within the rectum there were grade 1-2 internal hemorrhoids. The preparation was excellent throughout with [place] Preparation Score of 9. The cecal time was 10 minutes. Impression: 1. Diminutive ascending polyps x 2 2. Left-sided diverticulosis 3. Grade 1-2 internal hemorrhoids Plan: I will follow up the polyp pathology and recommend repeat colonoscopy again in 7 years based upon the polyp histology. I would encourage fiber supplementation on a long-term daily maintenance basis.
[2023-11-12 08:13] VITALS: BP 86/54; PULSE 61; RESP 16; TEMP 36.2; O2SAT 98
[2023-11-12 08:33] VITALS: BP 97/64; PULSE 61; RESP 18; TEMP 36.3; O2SAT 98
[2023-11-12 08:43] VITALS: BP 121/98; PULSE 62; RESP 18; TEMP 36.3; O2SAT 99
== END 2023-11-12 08:43 | disposition home or self-care (01) ==
PROVIDERS: PCP Internal Medicine; Visit Provider Internal Medicine Gastroenterology
PROC: (CPT 45385; principal; 2023-11-12 08:00)
DX: Z12.11 Encounter for screening for malignant neoplasm of colon (principal); Z86.010 Personal history of colon polyps; K63.5 Polyp of colon; K57.30 Diverticulosis of large intestine without perforation or abscess without bleeding; K64.8 Other hemorrhoids
CPT/HCPCS: 45385; 88305; 99221; J7120

== ENCOUNTER 2023-12-19 14:44 | Outpatient (CLI) | payer MEDICARE, SELFPAY ==
[2023-12-19 14:41] LABS: Basophils # 0.1 K/mm3 (0-0.2); Basophils % 0.8 % (0.1-2.0); Eosinophils # 0.2 K/mm3 (0.0-0.4); Eosinophils % 2.1 % (0.1-12.0); Hematocrit 40.1 % (42.0-52.0); Hemoglobin 16.1 g/dL (14.1-18.0); Lymphocytes # 2.2 K/mm3 (0.7-4.5); Lymphocytes % 28.4 % (10-50); Mean Corpuscular HGB Conc 40.1 g/dL (31.8-35.4); Mean Corpuscular Hemoglobin 34.6 pg (27.0-31.2); Mean Corpuscular Volume 86.3 fl (80-94); Mean Platelet Volume 8.3 fl (7.4-10.4); Monocytes # 0.4 K/mm3 (0.1-1.0); Monocytes % 4.4 % (1.7-9.3); Neutrophils % 64.2 % (37.0-80.0); Platelet Count 192 K/mm3 (142-424); Red Blood Count 4.64 M/mm3 (4.60-6.20); Red Cell Distribution Width 13.8 % (11.5-17.5); White Blood Count 7.9 K/mm3 (4.8-10.8)
[2023-12-19 15:12] LABS: Albumin Level 4.3 g/dl (3.5-5.0); Chloride 106 mmol/L (98-107); Potassium 4.1 mmoL/L (3.5-5.1); Sodium 141 mmol/L (136-145)
[2023-12-19 15:15] LABS: Alanine Aminotransferase 21 U/L (12-78); Albumin/Globulin Ratio 1.8 (1.1-1.8); Alkaline Phosphatase 73 U/L (38-126); Anion Gap 14.1 mEq/L (5-15); Aspartate Amino Transferase 28 U/L (17-59); Bilirubin,Total 0.8 mg/dl (0.2-1.3); Blood Urea Nitrogen 16 mg/dl (9-20); Calcium 9.3 mg/dl (8.4-10.2); Carbon Dioxide 25 mmol/L (22.0-30.0); Cholesterol 128 mg/dl (140-200); Estimated Glomerular Filt Rate 96 ml/min (>60); GFR (African American) 116 ML/MIN (>60); Globulin 2.4 g/dL (1.3-3.2); Glucose 93 mg/dl (74-100); Total Protein,Serum 6.7 g/dl (6.3-8.2); Triglycerides 110 mg/dl (30-150); VLDL Cholesterol 22 mg/dL (0-40)
[2023-12-19 15:16] LABS: Chol/HDL Ratio 3.3 (1-3.5); HDL Cholesterol 39 mg/dl (40-60)
[2023-12-19 15:28] LABS: Direct LDL Cholesterol 68.47 mg/dL (100-129)
[2023-12-19 16:02] LABS: Prostate Specific Ag Screen 1.2 ng/ml (0.0-4.0)
== END 2023-12-19 23:59 | disposition home or self-care (01) ==
LOC: LAB.DROPOF 14:45
PROVIDERS: PCP Internal Medicine; Visit Provider Internal Medicine
DX: I10 Essential (primary) hypertension (principal); E78.5 Hyperlipidemia, unspecified; Z12.5 Encounter for screening for malignant neoplasm of prostate
CPT/HCPCS: 80053; 80061; 85025; G0103

== ENCOUNTER 2024-04-15 14:28 | Outpatient (CLI) | payer MEDICARE, SELFPAY ==
--- NOTE | 2024-04-15 14:31 | XR_ITS ---
FINAL REPORT CLINICAL HISTORY: Productive cough, weakness COMPARISON: 11/25/2021 FINDINGS: PA and lateral views of the chest were obtained. No acute pulmonary density is evident. There is no evidence of effusion or other pleural disease. The mediastinum has a normal appearance. The cardiac silhouette is unremarkable. IMPRESSION: Unremarkable chest exam. Reviewed, Interpreted and Dictated by Sheron Ibrahim MD Transcribed by Radha Spaulding Authenticated and [facility]
== END 2024-04-15 23:59 | disposition home or self-care (01) ==
LOC: RAD 14:29
PROVIDERS: PCP Internal Medicine; Visit Provider Internal Medicine
DX: R05.8 Other specified cough (principal); R53.1 Weakness
CPT/HCPCS: 71046

== ENCOUNTER 2024-06-18 10:10 | Outpatient (CLI) | payer MEDICARE, SELFPAY ==
[2024-06-18 17:35] LABS: Alanine Aminotransferase 46 U/L (12-78); Albumin Level 4.6 g/dl (3.5-5.0); Albumin/Globulin Ratio 2.2 (1.1-1.8); Alkaline Phosphatase 64 U/L (38-126); Anion Gap 12.4 mEq/L (5-15); Aspartate Amino Transferase 47 U/L (17-59); Bilirubin,Total 0.7 mg/dl (0.2-1.3); Blood Urea Nitrogen 21 mg/dl (9-20); Calcium 9.4 mg/dl (8.4-10.2); Carbon Dioxide 26 mmol/L (22.0-30.0); Chloride 106 mmol/L (98-107); Chol/HDL Ratio 2.8 (1-3.5); Cholesterol 140 mg/dl (140-200); Estimated Glomerular Filt Rate 96 ml/min (>60); GFR (African American) 116 ML/MIN (>60); Globulin 2.1 g/dL (1.3-3.2); Glucose 77 mg/dl (74-100); HDL Cholesterol 50 mg/dl (40-60); Potassium 4.4 mmoL/L (3.5-5.1); Sodium 140 mmol/L (136-145); Total Protein,Serum 6.7 g/dl (6.3-8.2); Triglycerides 72 mg/dl (30-150); VLDL Cholesterol 14 mg/dL (0-40)
[2024-06-18 17:46] LABS: Direct LDL Cholesterol 68.23 mg/dL (100-129)
--- OUTSIDE RECORDS SUMMARY | 2024-06-19 11:15 | XMS_ITS | Data Portability ---
Author Organization [facility] Address [address] [place] [address] Assessment No assessment recorded. Plan of Treatment Reminders Order Date Submit Date Provider Last Modified By Organization Details Last Modified Time Details Appointments None record ed. Lab None record ed. Referral None record ed. Procedures None record ed. Surgeries None record ed. Imaging None record ed. Medication Orders None record ed. Patient TargetsNo targets recorded. Patient Instructions Encounter Date Encounter Id Patient Instructions Last Modified By Organization Details Last Modified Time 08/06/2017 [id number] Trigger Finger-LC [id number] [id number] Not available 08/18/2021 03:47:06 eating healthy foods: care instructions [id number] Not available 08/18/2021 03:49:01 Reason for Referral None Reported. Medical Equipment None Reported. Allergies No known drug allergies Medications Name Sig Start Date Stop Date Status Note LastModified by Organization Details LastModified Time atorvastatin 20 mg tablet active Not Available Not Available Not Available trazodone 50 mg tablet 2017 completed Not Available Not Available Not Available pravastatin 40 mg tablet 2017 completed Not Available Not Available Not Available lisinopril 20 mg tablet active Not Available Not Available No t Available lorazepam 0.5 mg tablet 2017 completed Not Available Not Available Not Available oseltamivir 75 mg capsule 2017 completed Not Available Not Available Not Available MoviPrep 100 gram-7.5 gram-2.691 gram oral powder packet 2017 completed Not Available Not Available Not Available Virtussin AC 10 mg-100 mg/5 mL oral liquid 2017 completed Not Available Not Available Not Available Vitals Date Recorded Body height Body mass index (BMI) Body weight Provider Name and Address Organization Details Last Updated DateTime 08/06/2017 175.26 cm 25.8 kg/m2 88379.66 g Katelynn Velez [facility] 08/06/2017 15:41:46 Social History Question Answer Notes LastModified by Organizat ion Details LastModified Time Tobacco Smoking Status Never Smoker Katelynn denton [facility] 08/06/2017 15:42:21 What Is Your Level Of Alcohol Consumption? None Information not available 08/06/2017 What Is Your Level Of Caffeine Consumption? Moderate [email or web address] Information not available 08/06/2017 Are You Currently Employed? No [email or web address] Information not available 08/06/2017 What Is Your Occupation? Retired Information not available 08/06/2017 Which Of Your Hands Is Dominant? Right [email or web address] Information not available 08/06/2017 What Was The Date Of Your Most Recent Tobacco Screening? 08/06/2017 Information not available 04/01/2019 Do You Use Any Illicit Or Recreational Drugs? No [email or web address] Information not available 08/06/2017 Sex: Unknown Functional Status None recorded. Mental Status None recorded. Family History Nothing Reported. Medical History Condition Response Allergies/Hayfever N Anxiety/Depression N Other N Gout N Thyroid Disease N Kidney Stones N Heart Conditions N Hernia N Migraines N COPD N Glaucoma N Pneumonia N Skin Problems N Immune System Disorder N Anesthesia Complications N Heart Attack ([place]) N Mental Illness N Neurological Problems N Diabetes N Rheumatic Fever N Bleeding Disorder N Arthritis N Seizures/Epilepsy N Blood Clot N Tuberculosis N Genetic Disorder N AIDS/HIV N Cancer N Stroke N Asthma N Blood Thinners N Alcohol Overuse/Alcohol Abuse N Sleep Apnea N High Cholesterol Y Liver Disease N Included as Review of Systems Y Hypertension Y Osteoporosis N Kidney Disease N Past Encounters Encounter ID Performer Location Encounter Start Date Encounter Closed Date Diagnosis/Indication Diagnosis SNOMED-CT Code Diagnosis ICD10 Code Diagnosis Note [id number] SAURAV JACOBS MD [facility] [address] [place] [address] 08/06/2017 15:04:29 08/06/2017 16:12:42 Acquired trigger finger 6102162 M65.30 Right long and ring finger.Rec ommend release. Flexion co ntracture of proximal interphalangeal joint of finger 682273996 M24.549 Right small finger. Suspect possible extensor tendon injury by history of treatment. Recommend observe. After trigger fingers are better we can obtain an x-ray of the small finger and determine whether it would be worthwhile to undergo a surgical treatment, which may be release of flexion contractur e first followed by extensor tendon reconstruc tion Health Concerns Section Related Observation LastModified by Organization Detai ls LastModified Time None Recorded Concern Status LastModified by Organization Details LastModified Time None Recorded Advance Directives Directive None Recorded Payers Insurance Date Sequence Insurance Name Policy Number Policy [place] Covered Member ID [place] Member ID Guarantor Name 01/07/2020 1 [place] [id number] Cristian Cuevas [id number] Cristian Cuevas Notes Date Note Type Note Provider Name and Address Organization Details Recorded Time 08/06/2017 text/html Hand SurgeryRepo rted bypatient.Hand Dominance:right Location:right Working:retired from workNotes:New Patient - Patient states that he is here for the right small finger and the right long finger. He notes that he injured his right small finger last august. He notes that he was finally seen in November. He notes that the right long finger started locking up as well. patient states that he has tried serial casting and splinting for the small finger and it is back to the way it started. Injury, right small finger in August. Seen in November. Serial casting help transiently but deformity persisted, shortly thereafter clicking catching developed in the long finger and ring finger. SAURAV JACOBS MD [facility] [place], [address], [facility] 08/06/2017 16:08:44
== END 2024-06-18 23:59 | disposition home or self-care (01) ==
LOC: LAB.DROPOF 06-19 11:12
PROVIDERS: PCP Internal Medicine; Visit Provider Internal Medicine
DX: E78.5 Hyperlipidemia, unspecified (principal); I10 Essential (primary) hypertension
CPT/HCPCS: 80053; 80061

== ENCOUNTER 2024-12-22 13:20 | Outpatient (CLI) | payer MEDICARE, SELFPAY ==
[2024-12-22 13:36] LABS: Hematocrit 46.3 % (42.0-52.0); Hemoglobin 15.9 g/dL (14.1-18.0); Immature Granulocytes % 0.3 %; Mean Corpuscular HGB Conc 34.3 g/dL (31.8-35.4); Mean Corpuscular Hemoglobin 30.4 pg (27.0-31.2); Mean Corpuscular Volume 88.5 fl (80-94); Nucleated Red Blood Cells % 0 %; Platelet Count 209 K/mm3 (142-424); Red Blood Count 5.23 M/mm3 (4.60-6.20); Red Cell Distribution Width-SD 39.3 fL; White Blood Count 6.7 K/mm3 (4.8-10.8)
[2024-12-22 14:05] LABS: Alanine Aminotransferase 22 U/L (12-78); Albumin Level 4.6 g/dl (3.5-5.0); Albumin/Globulin Ratio 1.5 (1.1-1.8); Alkaline Phosphatase 70 U/L (38-126); Anion Gap 11.1 mEq/L (5-15); Aspartate Amino Transferase 31 U/L (17-59); Bilirubin,Total 0.9 mg/dl (0.2-1.3); Blood Urea Nitrogen 16 mg/dl (9-20); Calcium 10.0 mg/dl (8.4-10.2); Carbon Dioxide 29 mmol/L (22.0-30.0); Chloride 104 mmol/L (98-107); Cholesterol 137 mg/dl (140-200); Creatinine,Serum 0.90 mg/dl (0.66-1.25); Estimated Glomerular Filt Rate 83 ml/min (>60); GFR (African American) 101 ML/MIN (>60); Globulin 3.0 g/dL (1.3-3.2); Glucose 95 mg/dl (74-100); HDL Cholesterol 40 mg/dl (40-60); Potassium 5.1 mmoL/L (3.5-5.1); Sodium 139 mmol/L (136-145); Total Protein,Serum 7.6 g/dl (6.3-8.2); Triglycerides 103 mg/dl (30-150)
== END 2024-12-22 23:59 | disposition home or self-care (01) ==
LOC: LAB.DROPOF 13:20
PROVIDERS: PCP Internal Medicine; Visit Provider Internal Medicine
DX: E78.5 Hyperlipidemia, unspecified (principal); I10 Essential (primary) hypertension; Z12.5 Encounter for screening for malignant neoplasm of prostate
CPT/HCPCS: 80053; 80061; 85025; G0103